=== PATIENT | female | born 1945 | race Caucasian/White ===

== ENCOUNTER → 2018-04-30 | Outpatient (CLI) | payer MEDICARE, OTHER ==
[~2018-04-30] MED LIST: ASPI81EC PO; CALGLU500; GLUCHON; HORMONE REPLACEMENT; MAGGLU250 PO; MULVITA; SELENIUM
== END | disposition home or self-care (01) ==
LOC: PLD 14:45 → LAB SHORT 14:45
DX: D22.5 Melanocytic nevi of trunk (principal)
CPT/HCPCS: 88305

== ENCOUNTER 2021-04-27 06:52 | Day surgery (SDC) | payer MEDICARE, OTHER ==
[~2021-04-27] VITALS: Ht 167.6 cm; Wt 92.6 kg
--- NOTE | 2021-04-27 07:12 | NUR ---
04/27/21 0712 Shiloh Leger TETRACAINE IN RIGHT EYE AT 0705 PLEDGET APPLIED TO RIGHT EYE AT 0708
== END 2021-04-27 09:00 | disposition home or self-care (01) ==
LOC: ORSCSDS 06:52
PROVIDERS: Ophthalmology
PROC: 08RJ3JZ Replacement of Right Lens with Synthetic Substitute, Percutaneous Approach (ICD-10-PCS; principal; 2021-04-27 08:00)
DX: H25.11 Age-related nuclear cataract, right eye (principal); H52.201 Unspecified astigmatism, right eye
CPT/HCPCS: J2001; J2250; J3010; J3301; J7040; V2632

== ENCOUNTER 2021-05-18 09:00 | Day surgery (SDC) | payer MEDICARE, OTHER | END 2021-05-18 10:38 | disposition home or self-care (01) | LOC: ORSCSDS 09:00 | PROC: 08RK3JZ Replacement of Left Lens with Synthetic Substitute, Percutaneous Approach (ICD-10-PCS; principal; 2021-05-18) | DX: H25.12 Age-related nuclear cataract, left eye (principal); H52.202 Unspecified astigmatism, left eye ==